=== PATIENT | female | born 1960 | race Caucasian/White ===

== ENCOUNTER → 2023-04-13 | Outpatient (CLI) | payer SELFPAY ==
[2023-04-13 14:56] LABS: HIV - WCH Non-Reactive (Nonreactive); Hepatitis B Surface Antibody Non-Reactive; Hepatitis C Antibody Non-Reactive (Nonreactive)
--- OUTSIDE RECORDS SUMMARY | 2023-04-13 22:18 | XMS RPT_ITS | CCD ---
Author Name Unknown Address [address] [place] [address] Organization [facility] Care Team Providers Care Abrasives Sales Representative Name Role Phone Dorothea KIM MD Unavailable LEIGH Unavailable Unavailable Samantha ATKINS MD Unavailable SURGERY, GENERAL Unavailable Unavailable ENDOCRINE, GENERAL Unavailable Unavailable Nathalie RN, Daphnie Unavailable Unavailable Randolph MARCUS, Sophy Unavailable Unavaila BRET Connor Unavailable Unavailable Mingo MARCUS, Emani Unavailable Unavailable COLIN KIM Unavailable Unavailable Unavailable Unavailable JUDY SALES AND SUPPORT CENTER AGENT-BC, TIFFANY Singh Unavailable Samantha ATKINS Admitting Unavailable Samantha ATKINS Attending Unavailable Samantha ATKINS Primary Care Unavailable Samantha ATKINS Consulting Unavailable PROVIDER, UNKNOWN Consulting Unavailable PROVIDER, UNKNOWN Consulting Unavailable PROVIDER, UNKNOWN Consulting Unavailable Problems Active Problems Problem Classification Problem Date Documented Date Episodic/Chronic Administrative/social admission (20 sources) Patient encounter status; Translations: [Counseling, unspecified] 10-15-2020 Episodic Immunizations and screening for infectious disease (18 sources) Requires diphtheria, tetanus and pertussis vaccination; Translations: [Encounter for immunization] 09-22-2016 Episodic Menstrual disorders (9 sources) Intermenstrual bleeding - irregular; Translations: [Excessive and frequent menstruation with irregular cycle] 12-02-2011 Chronic Other infections; including parasitic (18 sources) Personal history of other infectious and parasitic diseases Onset: 10-16-2020 11-28-2020 Episodic Other liver diseases (20 sources) Alkaline phosphatase raised; Translations: [Abnormal levels of other serum enzymes] 11-28-2020 Episodic Other screening for suspected conditions (not mental disorders or infectious disease) (20 sources) Other specified abnormal findings of blood chemistry; Translations: [Other abnormal blood chemistry] 11-28-2020 Episodic Other skin disorders (18 sources) Seborrheic keratosis; Translations: [Other seborrheic keratosis] 10-15-2020 Episodic Unclassified (9 sources) LAB DRAW - The labs drawn today include: other: Hepatic Function Panel and Alk. Phosphatase-Isoenzym. The lab was drawn from the left antecubital vein. The lab was ordered by Dr. Atkins. 11-01-2020 Unclassified (18 sources) LAB DRAW - The labs drawn today include: EXECUTIVE PROFILE. The lab was drawn from the left antecubital vein. The lab was ordered by Dr. Atkins. 10-08-2014 Past or Other Problems Problem Classification Problem Date Documented Da te Episodic/Chronic Unclassified (9 sources) Physical examination - The patient is here for a annual physical. The patient reports that immunizations are up to date (last tetanus 2014.) and denies tobacco use.Her last menstrual period date was menopause. 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 03-30-2023 Unclassified (9 sources) go over test results of ultrasound of abdomen and pelvis - Go over test results of ultrasound 11-28-2020 Unclassified (9 sources) !Patient notification of lab results - Dr. Atkins. The test(s) that you had done were/was an ultrasound of the abdomen and pelvis (This was normal. The spot compression of the left breast was also normal as was the regular mammogram on the right.). You should call our office if you have any questions. 11-12-2020 Unclassified (9 sources) !Patient notification of lab results - Dr. Atkins. The test(s) that you had done were/was blood work (The blood test showed that the bone portion of the alkaline phosphatase was slightly elevated (the absolute number) although the percentage of the alkaline phosphatase coming from bone (as opposed to liver or intestine) was within the normal percentage. [place] you were [place] for the [place], I would likely just advise that you have the labs repeated in 3-6 months to be sure they are stable. However, since you will [place] of [place], it might be prieto to have you see an cinder worker to make sure they don't feel additional tests are needed. Please let us know if we may arrange this for you). 11-06-2020 Unclassified (9 sources) !Patient notification of lab results - Dr. Atkins. The test(s) that you had done were/was blood work (One or more of your liver function tests were elevated. This can result from any number of causes such as fatty deposits in the liver or irritation due to a medication. However, these were not elevated 4 years ago. I would like to schedule an ultrasound of the liver and abdomen and a repeat blood test to help further evaluate this.Also, your LDL (bad cholesterol) was a bit higher at 165. Typically, in the absence of other risk factors, we don't treat this unless the LDL is over 190, but if your diet includes a lot of meat in [facility] [place], perhaps we should consider medication as a preventive measure.We can discuss the cholesterol situation further once the ultrasound and the labs have been completed.). You should call our office if you have any questions. 10-29-2020 Unclassified (4 sources) Well Woman Visit 10-15-2020 Unclassified (4 sources) [ADDITIONAL REASON] Blood pressure check - Note for Blood pressure check-up : Pt is feeling well, no complaints. 10-15-2020 Unclassified (9 sources) !Patient notification of lab results - Milly. The test(s) that you had done were/was blood work. The results of your testing were normal . You should call our office if you have any questions. 09-23-2016 Unclassified (9 sources) Physical examination - The patient is here for a other ( [employer] worker ) physical. Note for Physical examination : returning to [facility] [place] Oct 2016. Here for exam. 09-22-2016 Unclassified (9 sources) !Patient notification of lab results 1 - Milly. The test(s) that you had done were/was blood work (Your labs were good overall. The LDL (bad cholesterol) was 137 with a goal of keeping under 160. You had a slight amount of blood on your urine test, but this was due to being close to your menstrual cycle). You should call our office if you have any questions. 10-09-2014 Unclassified (9 sources) Complete Physical - Female - Note for Complete physical exam : Here for exam. 10-01-2014 Unclassified (9 sources) !Patient notification of lab results 1 - Dr. Atkins. Note for !Patient notification of lab results 1 : LDL 159. HDL 65. Recommend to monitor diet and check in a year. Often I recommend to treat if LDL is >160 so this is borderline. 12-10-2011 Unclassified (9 sources) !Patient notification of lab results 1 - Dr. Atkins. Note for !Patient notification of lab results 1 : Pelvic U/S 3 questionable low level echoes in endometrial canal; I question if this could be old blood since patient is a virgin and has partially intact hymen. Mammogram normal. 12-09-2011 Unclassified (9 sources) Physical examination - The patient is here for a other ( [employer] ) physical. Note for Physical examination : Here for exam. 12-02-2011 Unclassified (8 sources) !Patient notification of lab results - Dr. Atkins. The test(s) that you had done were/was blood work (Your alkaline phosphatase level was elevated. This can be due to health related issues with the intestines, the liver or the bones. Sometimes all 3 sources are contributing in a high normal proportion which pushes the total alkaline phosphatase level to a point that is above the laboratory's reference range, but in other cases one source is the major contributor. In order to better determine the source and to see if any further workup is needed, there is an additional blood test that must be performed.). 03-30-2023 Unclassified (5 sources) Blood pressure check - Note for Blood pressure check-up : Pt is feeling well, no complaints. 10-15-2020 Unclassified (5 sources) [ADDITIONAL REASON] Well Woman Visit 10-15-2020 Results Test Name Value Interpretation Reference Range Facil ity Vital Signs Date Time Vital Sign Value Performing Clinician Venkatesh abdi 03-30-2023 13:20-0500 Body height 148.59 cm [facility]. 03-30-2023 13:20-0500 Body mass index (BMI) [Ratio] 27.76 kg/m2 Sophy [facility]icks[facility]. 03-30-2023 13:20-0500 Body surface area Derived from formula 1.55 m2 Sophy Dickson RN [employer] [facility] [employer] [facility] [employer] 03-30-2023 13:20-0500 Body weight 61.29 kg Sophy Dickson RN [employer] 03-30-2023 13:20-0500 Diastolic blood pressure 72 mm[Hg] Sophy Dickson RN [facility] [employer] [facility] [employer] Encounters Encounter Date Encounter Type Care Provider Facility Start: 03-30-2023 End: 03-30-2023 [facility] Start: 03-30-2023 End: 03-30-2023 Lab Only Dorothea KIM MD Work Phone: [employer] [facility] [facility] Start: 03-30-2023 Review Dorothea KIM MD Work Phone: [employer]. Start: 03-30-2023 End: 03-30-2023 Patient encounter procedure Dorothea KIM MD Work Phone: [facility] [facility]; [employer] Start: 03-30-2023 End: 03-30-2023 Periodic preventive med est patient 40-64yrs Dorothea KIM MD Work Phone: [employer]. Start: 11-28-2020 End: 11-28-2020 Office outpatient visit 15 minutes Dorothea KIM MD Work Phone: [employer]. Start: 11-12-2020 End: 11-12-2020 Results Review Dorothea KIM MD Work Phone: [employer]. Start: 11-06-2020 End: 11-06-2020 Results Review Dorothea KIM MD Work Phone: [employer] Start: 11-01-2020 End: 11-01-2020 Lab Only Dorothea KIM MD Work Phone: [employer] Start: 10-31-2020 End: 10-31-2020 Historical Summary Dorothea KIM MD Work Phone: [employer] Start: 10-29-2020 End: 10-29-2020 Results Review Dorothea KIM MD Work Phone: [employer] Start: 10-15-2020 End: 10-15-2020 Office outpatient visit 25 minutes Dorothea KIM MD Work Phone: [employer] Start: 10-15-2020 End: 10-15-2020 Patient encounter status Dorothea KIM MD Work Phone: [employer]; [employer] Start: 10-12-2016 End: 10-12-2016 Historical Summary Dorothea KIM MD Work Phone: [employer] Start: 09-29-2016 End: 09-29-2016 Historical Summary Dorothea KIM MD Work Phone: [employer] Start: 09-23-2016 End: 09-23-2016 Results Review Dorothea KIM MD Work Phone: [employer] Start: 09-22-2016 End: 09-22-2016 Patient encounter procedure Dorothea KIM MD Work Phone: [employer]; [employer] Start: 09-22-2016 End: 09-22-2016 Periodic preventive med est patient 40-64yrs Dorothea KIM MD Work Phone: [employer] Start: 10-09-2014 End: 10-09-2014 Results Review Dorothea KIM MD Work Phone: [facility] [employer] [facility] Start: 10-08-2014 End: 10-08-2014 Lab Only Dorothea KIM MD Work Phone: [facility] [employer] [facility] Start: 10-08-2014 End: 10-08-2014 Patient encounter status Dorothea KIM MD Work Phone: [facility] [employer] [facility] [employer] [facility] [employer]. Start: 10-06-2014 End: 10-06-2014 Historical Summary Dorothea KIM MD Work Phone: [facility] Start: 10-01-2014 End: 10-01-2014 Patient encounter status Dorothea KIM MD Work Phone: [facility] [employer] [facility] [employer] [facility]. Start: 10-01-2014 End: 10-01-2014 Periodic preventive med est patient 40-64yrs Dorothea KIM MD Work Phone: [facility] [employer] [facility] Start: 12-10-2011 End: 12-10-2011 Results Review Dorothea KIM MD Work Phone: [facility] [employer] [facility] Start: 12-09-2011 End: 12-09-2011 Manual pelvic examination Dorothea KIM MD Work Phone: [facility] [employer] [facility] Start: 12-09-2011 End: 12-09-2011 Results Review Dorothea KIM MD Work Phone: [facility] [employer] [facility] Start: 12-09-2011 End: 12-09-2011 Lab Only Dorothea KIM MD Work Phone: [facility] [employer] [facility] Start: 12-02-2011 End: 12-02-2011 Patient encounter procedure Dorothea KIM MD Work Phone: [facility] [employer] [facility] Start: 12-02-2011 End: 12-02-2011 Patient encounter status Dorothea KIM MD Work Phone: [facility] [employer] [facility]. Patient encounter procedure Samantha ATKINS MD Work Phone: [facility] [employer] [facility] [employer] [facility]. Patient encounter status Samantha TAN MD Work Phone: [facility] [employer].; [facility] [employer] [facility]. Patient encounter status Samantha TAN MD Work Phone: [facility].; [facility] [employer] [facility]. Procedures Date Procedure Procedure Detail Performing Clinician Start: 11-12-2020 End: 11-12-2020 Screening mammography bi 2-view breast inc cad Samantha ATKINS MD Work Phone: Start: 11-12-2020 End: 11-12-2020 Us abdominal real time w/image documentation Samantha ATKINS MD Work Phone: Start: 10-30-2020 End: 10-30-2020 Stool for Occult Blood Dorothea KIM MD Work Phone: Plan of Treatment Date Care Activity Detail Author Start: 03-30-2023 Assay of phosphatase alkaline isoenzymes ALKALINE PHOSPHATASE-ISOENZYM (25302) Start: 30-Mar-2023 19:31 Request [facility]; [facility]. Start: 03-30-2023 Lipid panel LIPID PANEL (8 [id number]) Start: 30-Mar-2023 14:44 Request [facility]; [facility] [employer]. Start: 03-30-2023 Comprehensive metabo lic panel CMP - COMPREHENSIVE METABOLIC PANEL (47695) Start: 30-Mar-2023 14:44 Request [facility]; [employer] [facility] [employer] [facility]. Start: 03-30-2023 Blood count complete auto&auto difrntl wbc CBC, PLATELETS & AUT DIFF ([id number]) Start: 30-Mar-2023 14:44 Request [facility] [employer] [facility] Start: 03-30-2023 Screening digital br east tomosynthesis bi SCREENING MAMMOGRAPHY WITH TOMOSYNTHESIS ([id number]) 3D - Bilateral Start: 30-Mar-2023 Intent [facility] [employer] [facility].; [employer] [facility] [employer]amethod [facility], [employer]. Start: 10-01-2014 Mammogram, screening MAMMOGRAM , SCREENING ([id number]) Start: 01-Oct-2014 Intent [facility] [employer] [facility].; [employer] [facility] [employer] [facility], [employer]. Start: 10-01-2014 Provider Instruction s for Treatment Self breast exam Indication: SCREENING MAMMOGRAM NEC Start: 01-Oct-2014 Instruction Type: Provider Instructions for Treatment [facility].; [employer] [facility] [employer], [employer]. Start: 12-02-2011 Blood occult peroxid ase actv qual other sources OCCULT BLOOD, FECES, SINGLE (IN OFFICE) ([id number]) Start: 02-Dec-2011 14:38 Request [facility] [employer].; [place] - [facility] [employer] [facility] Start: 12-02-2011 Mammogram, screening MAMMOGRAM , SCREENING ([id number]) Start: 02-Dec-2011 Intent [facility].; [employer] [facility] [employer] [facility], [employer]. Start: 12-02-2011 Us pelvic nonobstetr ic real-time image complete US PELVIS, COMPLETE ([id number]) Start: 02-Dec-2011 Intent [employer] [facility].; [employer] [facility] [employer]amethod [facility]. Immunizations Immunization Date Immunization Notes Care Provider Bassem garcia 10-01-2014 tetanus toxoid, redu marianne diphtheria toxoid, and acellular pertussis vaccine, adsorbed J SAMEER KIM MD Work Phone: [facility]; [employer] [facility] [employer] Social History Date Type Detail Facility Alcohol Use: Alcohol Use: ; O ccasional alcohol use. [employer]; [employer] [facility] [employer] Current Work/Study Status Current Work/St udy Status [facility] [employer]; [facility] Marital status: Marital status: ; Single. [facility]; [employer] [facility] Tobacco use: Tobacco use: ; Never smoker. [facility]; [facility] Female [facility]; [facility] Work Phone: Single [facility]; [facility] Work Phone: Occasional alcohol use [facility]; [facility] Work Phone: Never smoked tobacco [facility]; [facility] Work Phone: Family History No Family History Records Found Brother (s) Status:Active Comments:3. 1 wi th arthritis; 1 HTN and hypercholesterolemia Father Status:Active Comments: d. d. 58 yo; Skin CA Mother Status:Active Comments: d. 53yo; breast [place]; Sister (s) Status:Active Comments:0. Brother (s) Status:Active Comments:3. 1 wi th arthritis; 1 HTN and hypercholesterolemia Father Status:Active Comments: d. d. 58 yo; Skin [place] Mother Status:Active Comments: d. 53yo; breast CA; Sister (s) Status:Active Comments:0. Brother (s) Status:Active Comments:3. 1 wi th arthritis; 1 HTN and hypercholesterolemia Father Status:Active Comments: d. d. 58 yo; Skin [place] Mother Status:Active Comments: d. 53yo; breast [place]; Sister (s) Status:Active Comments:0. Brother (s) Status:Active Comments:3. 1 wi th arthritis; 1 HTN and hypercholesterolemia Father Status:Active Comments: d. d. 58 yo; Skin [place] Mother Status:Active Comments: d. 53yo; breast [place]; Sister (s) Status:Active Comments:0. Brother (s) Status:Active Comments:3. 1 wi th arthritis; 1 HTN and hypercholesterolemia Father Status:Active Comments: d. d. 58 yo; Skin [place] Mother Status:Active Comments: d. 53yo; breast CA; Sister (s) Status:Active Comments:0. Brother (s) Status:Active Comments:3. 1 wi th arthritis; 1 HTN and hypercholesterolemia Father Status:Active Comments: d. d. 58 yo; Skin [place] Mother Status:Active Comments: d. 53yo; breast CA; Sister (s) Status:Active Comments:0. Brother (s) Status:Active Comments:3. 1 wi th arthritis; 1 HTN and hypercholesterolemia Father Status:Active Comments: d. d. 58 yo; Skin [place] Mother Status:Active Comments: d. 53yo; breast CA; Sister (s) Status:Active Comments:0. Brother (s) Status:Active Comments:3. 1 wi th arthritis; 1 HTN and hypercholesterolemia Father Status:Active Comments: d. d. 58 yo; Skin [place] Mother Status:Active Comments: d. 53yo; breast CA; Sister (s) Status:Active Comments:0. Brother (s) Status:Active Comments:3. 1 wi th arthritis; 1 HTN and hypercholesterolemia Father Status:Active Comments: d. d. 58 yo; Skin [place] Mother Status:Active Comments: d. 53yo; breast CA; Sister (s) Status:Active Comments:0. Summary Purpose Advance Directives No Advanced Directives Records Found Additional Source Comments INFORMATION SOURCE (unrecogn ized section and content) FOR RECORDS PERTAINING TO PATIENTS WHO ARE OR HAVE BEEN ENROLLED IN A CHEMICAL DEPENDENCY/SUBSTANCEABUSE PROGRAM, SOME INFORMATION MAY BE OMITTED. This clinical summary was aggregated from multiple sources. Caution should be exercised in using it in the provision of clinical care. This summary normalizes information from multiple sources, and as a consequence, information in this document may materially change the coding, format and clinical context of patient data. In addition, data may be omitted in some cases. CLINICAL DECISIONS SHOULD BE BASED ON THE PRIMARY CLINICAL RECORDS. [employer] provides no warranty or guarantee of the accuracy or completeness of information in this document.
== END | disposition home or self-care (01) ==
PROVIDERS: Referring Provider Student in an Organized Health Care Education/Training Program; Visit Provider Student in an Organized Health Care Education/Training Program
DX: T14.8XXA Other injury of unspecified body region, initial encounter (principal); W46.0XXA Contact with hypodermic needle, initial encounter
CPT/HCPCS: 36415; 86703; 86706; 86803